=== PATIENT | male | born 1985 | race Caucasian/White ===

== ENCOUNTER 2019-09-28 09:52 | Emergency (ER) | payer MEDICAID ==
[~2019-09-28] VITALS: Ht 195.6 cm; Wt 90.9 kg
[2019-09-28 10:45] LABS: BASOPHILS % (AUTO) 0.6 % (0-1); EOSINOPHILS # (AUTO) 0.1 X10'3 (0-0.9); EOSINOPHILS % (AUTO) 1.9 % (0-6); HEMATOCRIT 44.1 % (42.0-52.0); LYMPHOCYTES # (AUTO) 1.6 X10'3 (1.1-4.8); LYMPHOCYTES % (AUTO) 23.3 % (21-51); MEAN CORPUSCULAR HEMOGLOBIN 32.5 PG (27.0-31.0); MEAN CORPUSCULAR HGB CONC 34.1 g/dL (33.0-36.5); MEAN CORPUSCULAR VOLUME 95.2 FL (78-98); MEAN PLATELET VOLUME 7.8 FL (7.4-10.4); MONOCYTES # (AUTO) 0.4 X10'3 (0-0.9); MONOCYTES % (AUTO) 6.4 % (2-12); NEUTROPHILS # (AUTO) 4.7 X10'3 (1.8-7.7); NEUTROPHILS % (AUTO) 67.8 % (42-75); PLATELET COUNT 243 X10'3 (140-440); RED BLOOD COUNT 4.63 X10'6 (4.70-6.10); RED CELL DISTRIBUTION WIDTH 13.2 % (11.5-14.5)
[2019-09-28 10:58] LABS: ALANINE AMINOTRANSFERASE 25 U/L (12-78); ALBUMIN 4.1 G/DL (3.4-5.0); ALBUMIN/GLOBULIN RATIO 1.2 (1.1-1.5); ALKALINE PHOSPHATASE 73 IU/L (46-116); ANION GAP 7 (8-16); ASPARTATE AMINO TRANSFERASE 30 U/L (10-37); BILIRUBIN,TOTAL 1.3 MG/DL (0.1-1.0); BLOOD UREA NITROGEN 13 MG/DL (7-18); BUN/CREATININE RATIO 15.1 (5.4-32.0); CALCIUM 9.2 MG/DL (8.5-10.1); CHLORIDE 104 MMOL/L (99-107); CREATININE 0.86 MG/DL (0.60-1.10); GLUCOSE 117 MG/DL (70-104); POTASSIUM 3.6 MMOL/L (3.5-5.1); SODIUM 140 MMOL/L (135-145); TOTAL PROTEIN 7.6 G/DL (6.4-8.2); eGFR > 90 ML/MIN
[2019-09-28 11:05] LABS: URINE AMPHETAMINE SCREEN NEGATIVE (Neg); URINE BARBITUATE SCREEN NEGATIVE (Neg); URINE BENZODIAZEPINES SCREEN NEGATIVE (Neg); URINE CANNABINOID SCREEN POSITIVE (Neg); URINE COCAINE SCREEN NEGATIVE (Neg); URINE METHADONE SCREEN NEGATIVE (Neg); URINE OPIATE SCREEN NEGATIVE (Neg); URINE PHENCYCLIDINE SCREEN NEGATIVE (Neg)
[2019-09-28 11:06] LABS: ETHANOL < 0.010 GM/DL (0.0-0.010)
[2019-09-28] MEDS ORDERED: hydrOXYzine 25 MG tablet PO ONE (11:50)
[2019-09-28 12:06] LABS: CLARITY,URINE CLOUDY (Clear); GLUCOSE, URINE NEGATIVE (Neg); KETONES,URINE NEGATIVE (Neg); LEUKOCYTE ESTERASE ,URINE NEGATIVE (Neg); NITRITES, URINE NEGATIVE (Neg); OCCULT BLOOD,URINE NEGATIVE (Neg); PH,URINE 5.5 (4.8-8.0); PROTEIN,URINE NEGATIVE (Neg); UROBILINOGEN,URINE 0.2 E.U/dL (0.2-1.0)
[2019-09-28 12:11] LABS: COLOR,URINE YELLOW (Yellow); UA COLLECTION TYPE CLN CATCH MIDSTREAM
[2019-09-28 12:12] LABS: BACTERIA,URINE NONE SEEN /HPF (Neg); MUCUS STRANDS NONE SEEN /LPF (Neg); RBC,URINE NONE SEEN /HPF (0-2); SQUAMOUS EPITHELIAL CELL,UR NONE SEEN /LPF (FEW); WBC,URINE NONE SEEN /HPF (0-4)
[2019-09-28 12:13] LABS: AMORPHOUS URATES 4+
--- NOTE | 2019-09-28 13:08 | NUR ---
PACKET FAXED TO [facility]
--- NOTE | 2019-09-28 16:05 | NUR ---
resting in bed
[2019-09-28 16:36] VITALS: BP 105/67
[2019-09-28] MEDS ORDERED: NO HOME MEDS (19:22)
== END 2019-09-29 03:51 ==
LOC: ER 09:53
DX: R44.0 Auditory hallucinations (principal); Z59.0 Homelessness
CPT/HCPCS: 36415; 80053; 80305; 80320; 81001; 84443; 85025; 99285; Q0177

== ENCOUNTER 2019-10-09 14:04 | Emergency (ER) | payer MEDICAID ==
[~2019-10-09] VITALS: Ht 198.1 cm; Wt 79.5 kg
[~2019-10-09 14:04] MED LIST: HYDR-3686 PO; NO HOME MEDS; RISP1TAB3 PO; TRAZ-251 PO
[2019-10-09 15:13] LABS: ALANINE AMINOTRANSFERASE 27 U/L (12-78); ALBUMIN 3.5 G/DL (3.4-5.0); ALBUMIN/GLOBULIN RATIO 1.1 (1.1-1.5); ALKALINE PHOSPHATASE 71 IU/L (46-116); ANION GAP 7 (8-16); ASPARTATE AMINO TRANSFERASE 24 U/L (10-37); BASOPHILS # (AUTO) 0.1 X10'3 (0-0.2); BASOPHILS % (AUTO) 0.8 % (0-1); BILIRUBIN,TOTAL 0.5 MG/DL (0.1-1.0); BLOOD UREA NITROGEN 15 MG/DL (7-18); BUN/CREATININE RATIO 17.6 (5.4-32.0); CALCIUM 8.8 MG/DL (8.5-10.1); CHLORIDE 106 MMOL/L (99-107); CREATININE 0.85 MG/DL (0.60-1.10); EOSINOPHILS # (AUTO) 0.1 X10'3 (0-0.9); EOSINOPHILS % (AUTO) 1.4 % (0-6); ETHANOL < 0.010 GM/DL (0.0-0.010); GLUCOSE 94 MG/DL (70-104); HEMATOCRIT 38.7 % (42.0-52.0); HEMOGLOBIN 13.2 g/dl (14.0-17.9); LYMPHOCYTES # (AUTO) 1.5 X10'3 (1.1-4.8); LYMPHOCYTES % (AUTO) 23.7 % (21-51); MEAN CORPUSCULAR HGB CONC 34.1 g/dL (33.0-36.5); MEAN CORPUSCULAR VOLUME 93.8 FL (78-98); MEAN PLATELET VOLUME 7.1 FL (7.4-10.4); MONOCYTES # (AUTO) 0.8 X10'3 (0-0.9); MONOCYTES % (AUTO) 12.8 % (2-12); NEUTROPHILS # (AUTO) 3.9 X10'3 (1.8-7.7); NEUTROPHILS % (AUTO) 61.3 % (42-75); PLATELET COUNT 216 X10'3 (140-440); POTASSIUM 4.2 MMOL/L (3.5-5.1); RED BLOOD COUNT 4.13 X10'6 (4.70-6.10); RED CELL DISTRIBUTION WIDTH 12.7 % (11.5-14.5); SODIUM 142 MMOL/L (135-145); TOTAL CARBON DIOXIDE 28.8 MMOL/L (24-32); TOTAL PROTEIN 6.7 G/DL (6.4-8.2); WHITE BLOOD COUNT 6.4 X10'3 (4.5-11.0); eGFR > 90 ML/MIN
[2019-10-09 15:53] LABS: URINE AMPHETAMINE SCREEN NEGATIVE (Neg); URINE BARBITUATE SCREEN NEGATIVE (Neg); URINE BENZODIAZEPINES SCREEN NEGATIVE (Neg); URINE CANNABINOID SCREEN POSITIVE (Neg); URINE COCAINE SCREEN NEGATIVE (Neg); URINE METHADONE SCREEN NEGATIVE (Neg); URINE OPIATE SCREEN NEGATIVE (Neg); URINE PHENCYCLIDINE SCREEN NEGATIVE (Neg)
--- NOTE | 2019-10-09 16:26 | NUR ---
PACKET FAXED [facility]
--- NOTE | 2019-10-09 17:43 | NUR ---
PT STATES HIS MOM IS ELVIA PRINGLE YANETH SCHMID. HE STATES HE HAS A BROTHER NAMED MINO RODRIGUEZ. HE STATES HE IS FROM [facility]. PT HAS NO ID.
--- NOTE | 2019-10-09 18:15 | NUR ---
PT NEEDS A BUS TICKET TO HIS MOM'S HOUSE. WILL [employer]ALLOON TESTER
--- NOTE | 2019-10-09 18:29 | NUR ---
[facility] [place] [facility] [phone]
--- NOTE | 2019-10-09 19:55 | NUR ---
Patient is in no distress. 1:1 Interview at bedside. Patient tells this com writer he has a history of Schizophrenic and Bipolor. "I have anger issues, I want to hurt people, men, children, anyone, then I turn the anger on myself and want to hang myself." Patient tells this com writer that he was discharged from [facility] to the [place] by taxi. It was crowded there, it kicked in his anxiety so he came here. Patient spoke with his mother by telephone. It was the first time in many years. It is patients plan to go his mothers to live. (See earlier notes.) Patients bed is in direct view from the nursing station.
[2019-10-09] MEDS ORDERED: RISP1TAB3 PO (20:15)
[2019-10-09] MEDS ORDERED: TRAZ-256 PO (20:15)
[2019-10-09] MEDS ORDERED: HYDR-3686 PO (20:15)
[2019-10-09] MEDS: risperiDONE 0.5mg tablet PO SCH (21:10)
[2019-10-09] MEDS: hydrOXYzine 25 MG tablet PO PRN (21:11)
[2019-10-09] MEDS: traZODone 50mg tablet PO SCH (21:11)
--- NOTE | 2019-10-09 22:56 | NUR ---
Patient is sleeping quietly, supine in bed. In view from nursing station.
--- NOTE | 2019-10-10 01:51 | NUR ---
Patient sleeping supine in bed, no signs of discomfort. In view from nursing station.
--- NOTE | 2019-10-10 02:46 | NUR ---
Patient sleeping quietly, no distress. Supine in bed.
--- NOTE | 2019-10-10 03:30 | NUR ---
Patient is sleeping on his right side. He has self repositioned. No distress noted.
--- NOTE | 2019-10-10 04:41 | NUR ---
Patient is sleeping in a supine position.
--- NOTE | 2019-10-10 06:00 | NUR ---
Patient is sleeping quietly on his left side.
--- NOTE | 2019-10-10 07:00 | NUR ---
PT IS RESTING
--- NOTE | 2019-10-10 08:00 | NUR ---
PT IS TALKING TO HIS MOM
--- NOTE | 2019-10-10 09:00 | NUR ---
PT IS RESTING
--- NOTE | 2019-10-10 10:00 | NUR ---
PT IS RESTING
--- NOTE | 2019-10-10 11:00 | NUR ---
PT IS RESTING
--- NOTE | 2019-10-10 12:00 | NUR ---
PT IS RESTING
--- NOTE | 2019-10-10 13:00 | NUR ---
PT IS RESTING
--- NOTE | 2019-10-10 14:00 | NUR ---
PT IS RESTING
--- NOTE | 2019-10-10 15:00 | NUR ---
PT IS RESTING. NO ISSUES AT THIS TIME
--- NOTE | 2019-10-10 16:00 | NUR ---
PT IS RESTING. NO ISSUES AT THIS TIME
--- NOTE | 2019-10-10 17:00 | NUR ---
PT IS RESTING. NO ISSUES AT THIS TIME
--- NOTE | 2019-10-10 18:19 | NUR ---
PT IS RESTING. NO ISSUES AT THIS TIME
--- NOTE | 2019-10-10 19:05 | NUR ---
Pt appears to be resting comfortably in his bed. He has his blankets pulled up over his head. No apparent s/s of distress noted
[2019-10-10] MEDS: risperiDONE 0.5mg tablet PO SCH (20:09)
[2019-10-10] MEDS: traZODone 50mg tablet PO SCH (20:09)
--- NOTE | 2019-10-10 20:10 | NUR ---
Pt continues to be lying in his bed with blankets over his head. Pt awoke easily and took his medication without issue. No apparent s/s of distress noted at this time
--- NOTE | 2019-10-10 21:00 | NUR ---
Pt appears to be resting comfortably. No apparent s/s of distress noted
--- NOTE | 2019-10-10 22:00 | NUR ---
Pt continues to appear to be resting comfortably. No apparent s/s of distress noted
--- NOTE | 2019-10-10 23:00 | NUR ---
Pt appears to be resting comfortably in bed. No apparent s/s of symptoms
--- NOTE | 2019-10-11 | NUR ---
Pt appears to be resting comfortably in bed. No apparent s/s of distress noted
--- NOTE | 2019-10-11 01:05 | NUR ---
Pt appears to be resting comfortably. No apparent s/s of distress noted
--- NOTE | 2019-10-11 02:06 | NUR ---
Pt appears to be resting comfortably in bed. No s/s of distress noted
--- NOTE | 2019-10-11 03:08 | NUR ---
Pt appears to be resting comfortably in bed. No s/s of distress noted
--- NOTE | 2019-10-11 04:06 | NUR ---
Pt appears to be resting comfortably in bed. No s/s of distress noted
--- NOTE | 2019-10-11 05:01 | NUR ---
Pt appears to be resting comfortably in bed. No s/s of distress noted
--- NOTE | 2019-10-11 06:48 | NUR ---
pt sleeping in lft lateral position .rr even and nonlabored.will cont to monitor .
--- NOTE | 2019-10-11 06:52 | NUR ---
pt up to use restroom.no distress noted.will cont to monitor.
--- NOTE | 2019-10-11 09:24 | NUR ---
pt up to use restroom at this time.
--- NOTE | 2019-10-11 10:31 | NUR ---
pt sitting up in the bed drinking water .no distress noted.will cont to monitor.
--- NOTE | 2019-10-11 11:24 | NUR ---
pt talking over the phone .no distress noted.
--- NOTE | 2019-10-11 13:12 | NUR ---
pt up and eating his lunch at this time.
--- NOTE | 2019-10-11 14:09 | NUR ---
pt sitting in bed at this time ,awake no distress noted will cont to monitor.
--- NOTE | 2019-10-11 15:30 | NUR ---
pt resting in bed quietly.no distress noted.will cont to monitor.
--- NOTE | 2019-10-11 16:28 | NUR ---
pt walking in the hallway interactive and cooperative .no concern .will cont to monitor.
--- NOTE | 2019-10-11 19:39 | NUR ---
The patient has been resting on his bed. He denies that he is hearing voices or seeing things that are not there but he is endorsing paranoia. "I'm always paranod. I think everyone is out to get me and that people can hear my thoughts" He made odd statements about being responsible for the rest of the patients on the unit. He states he wants a bus ticket to go to his mother's home in [place]. He currently denies being suicidal. He reports his anxiety is very high.
[2019-10-11] MEDS: hydrOXYzine 25 MG tablet PO PRN (20:17)
[2019-10-11] MEDS: traZODone 50mg tablet PO SCH (20:17)
[2019-10-11] MEDS: risperiDONE 0.5mg tablet PO SCH (20:17)
--- NOTE | 2019-10-11 21:54 | NUR ---
The patient appears to be resting on his bed
--- NOTE | 2019-10-12 01:46 | NUR ---
The patient appears to be sleeping
--- NOTE | 2019-10-12 02:57 | NUR ---
The patient appears to be sleeping
--- NOTE | 2019-10-12 03:58 | NUR ---
Report received and assumed care. Pt resting quietly, respirations normal, no s/s of distress.
[2019-10-12] MEDS: hydrOXYzine 25 MG tablet PO PRN (12:01)
--- NOTE | 2019-10-12 12:02 | NUR ---
breaking primary nurse at this time,pt came to nurses station c/o anxitey ,requesting for prn anxitey med.pt medicated with 50 mg of atarax.pt stated that he sometimes get social anxiteies.denies any other concern ,will cont to monitor.
--- NOTE | 2019-10-12 12:38 | NUR ---
Patient awake and in bed.
--- NOTE | 2019-10-12 13:11 | NUR ---
Patient awake in bed and just finished lunch.
--- NOTE | 2019-10-12 14:12 | NUR ---
Patient awake in bed and reading a book.
--- NOTE | 2019-10-12 14:27 | NUR ---
PTS MOM CALLED AND SPOKE WITH ANITHA FROM [facility] STATING UPON DC THE PT COULD COME LIVE WITH HER. CALL PLACED AND MESSAGE LEFT FOR MASSIMO VAZQUEZ REQUESTING SHE CONTACT [facility] ABOUT POSSIBLE BUS PASS TO GET PT TO MOMS HOUSE. PER ANITHA, PTS MOM LIVES [address].
--- NOTE | 2019-10-12 14:56 | NUR ---
LUKE FROM HERE TO SPEAK WITH ANITHA FROM [facility] RE PT DC PLAN
--- NOTE | 2019-10-12 15:02 | NUR ---
Patient awake in bed and reading a book.
--- NOTE | 2019-10-12 15:47 | NUR ---
Manuel from [facility] will be contacting the patient's mother to figure out what the next step will be.
--- NOTE | 2019-10-12 16:01 | NUR ---
Patient awake and sitting in bed.
--- NOTE | 2019-10-12 17:01 | NUR ---
Patient awake in bed.
--- NOTE | 2019-10-12 17:35 | NUR ---
Patient on the phone with his mother at this time.
--- NOTE | 2019-10-12 18:15 | NUR ---
Patient sitting in bed and coloring.
[2019-10-12] MEDS: risperiDONE 0.5mg tablet PO SCH (21:16)
[2019-10-12] MEDS: traZODone 50mg tablet PO SCH (21:16)
--- NOTE | 2019-10-13 06:30 | NUR ---
Pt sleeping on right side.
--- NOTE | 2019-10-13 08:30 | NUR ---
Pt woke up to eat breakfast. States wants to go to [facility] to see mom.
--- NOTE | 2019-10-13 10:30 | NUR ---
Pt continues to sleep on left side.
[2019-10-13] MEDS: hydrOXYzine 25 MG tablet PO PRN (11:05)
--- NOTE | 2019-10-13 12:30 | NUR ---
Sitting up in bed coloring. Calm and cooperative.
--- NOTE | 2019-10-13 14:30 | NUR ---
Sitting up in bed coloring and watching movie.
--- NOTE | 2019-10-13 16:32 | NUR ---
Pt is in bed sleeping.
--- NOTE | 2019-10-13 19:00 | NUR ---
Pt calm and cooperative laughing with other pts and staff.
--- NOTE | 2019-10-13 19:24 | NUR ---
[place] given per pt request.
[2019-10-13] MEDS: risperiDONE 0.5mg tablet PO SCH (20:13)
[2019-10-13] MEDS: traZODone 50mg tablet PO SCH (20:13)
--- NOTE | 2019-10-13 21:28 | NUR ---
Pt requesting quietly, respirations normal, no s/s of distress.
--- NOTE | 2019-10-13 23:00 | NUR ---
Pt requesting quietly, respirations normal, no s/s of distress.
--- NOTE | 2019-10-14 00:03 | NUR ---
Pt requesting quietly, respirations normal, no s/s of distress.
--- NOTE | 2019-10-14 01:00 | NUR ---
Pt requesting quietly, respirations normal, no s/s of distress.
--- NOTE | 2019-10-14 02:00 | NUR ---
Pt requesting quietly, respirations normal, no s/s of distress.
--- NOTE | 2019-10-14 03:00 | NUR ---
Pt requesting quietly, respirations normal, no s/s of distress.
--- NOTE | 2019-10-14 04:00 | NUR ---
Pt requesting quietly, respirations normal, no s/s of distress.
--- NOTE | 2019-10-14 05:00 | NUR ---
Pt up to restroom.
--- NOTE | 2019-10-14 06:30 | NUR ---
PT AWAKE, RESTING QUIETLY IN HIS BED, READING A BOOK.
--- NOTE | 2019-10-14 08:00 | NUR ---
PT IS GIVEN BREAKFAST TRAY ON BEDSIDE TABLE AND IS EATING.
--- NOTE | 2019-10-14 11:48 | NUR ---
PT AMB TO BATHROOM AND BACK TO BED.
[2019-10-14] MEDS: hydrOXYzine 25 MG tablet PO PRN (12:41)
--- NOTE | 2019-10-14 12:43 | NUR ---
PT ASKING FOR ANXIETY MEDICATION. ADMINISTER ORDERED.
--- NOTE | 2019-10-14 13:15 | NUR ---
PT FINISHED WITH EATING.
--- NOTE | 2019-10-14 14:06 | NUR ---
PT IN BATHROOM AND SHAVING AND CLEANING SELF. REPLACE PTS BEDDING. PT BACK IN BED NOW.
--- NOTE | 2019-10-14 14:56 | NUR ---
PT PLAYING BOARD GAME WITH TWO OTHER PT'S. TECH WATCHING.
--- NOTE | 2019-10-14 16:00 | NUR ---
PT CONTINUES TO PLAY BOARDGAME WITH ANOTHER PT.
--- NOTE | 2019-10-14 17:25 | NUR ---
PT FINISHED WITH BOARD GAMES AND IS BACK IN BED.
--- NOTE | 2019-10-14 19:05 | NUR ---
Patient is resting quietly, he is doing puzzles and reading. Patient denies S/I or H/I at this time. Patient is in direct view from the nursing station.
--- NOTE | 2019-10-14 20:10 | NUR ---
Patient sleeping, no distress.
[2019-10-14] MEDS: traZODone 50mg tablet PO SCH (20:32)
[2019-10-14] MEDS: risperiDONE 0.5mg tablet PO SCH (20:32)
--- NOTE | 2019-10-14 21:04 | NUR ---
Patient is sleeping quietly on his right side.
--- NOTE | 2019-10-14 23:42 | NUR ---
Patient sleeping quietly on his left side in bed.
--- NOTE | 2019-10-15 01:20 | NUR ---
Patient sleeping in supine position. No distress noted.
--- NOTE | 2019-10-15 02:15 | NUR ---
Patient is sleeping on his right side, in view from nursing station.
--- NOTE | 2019-10-15 04:29 | NUR ---
Patient sleeping on his right side in bed. No distress.
--- NOTE | 2019-10-15 04:57 | NUR ---
Patient awake, ambulatory to bathroom to void, normal gait. Back to bed and resting.
--- NOTE | 2019-10-15 06:30 | NUR ---
Assumed care. Patient sleeping. No complaints noted.
--- NOTE | 2019-10-15 07:30 | NUR ---
Patient awake and coloring, calm/cooperative.
--- NOTE | 2019-10-15 08:30 | NUR ---
Patient eating breakfast. No s/sx of distress, no complaints noted.
--- NOTE | 2019-10-15 09:23 | NUR ---
Sitting up in bed drawing, no complaints noted, calm/cooperative.
--- NOTE | 2019-10-15 10:17 | NUR ---
BREAKING PRIMARY RN, PT IS LAYING ON HIS RIGHT SIDE, EYES CLOSED, REGULAR BREATHING PRESENT, NO NEEDS AT THIS TIME
--- NOTE | 2019-10-15 11:45 | NUR ---
CURRENTLY PLAYING A GAME WITH PATIENT IN BED 22, TOLERATING WELL.
--- NOTE | 2019-10-15 12:56 | NUR ---
pt up in bed ,eating is lunch,will cont to monitor.primary nurse came back from break.
--- NOTE | 2019-10-15 13:05 | NUR ---
Patient resting back in bed with eyes closed after eating lunch, no complaints.
--- NOTE | 2019-10-15 14:54 | NUR ---
Orly with [facility] here to see patient.
--- NOTE | 2019-10-15 14:57 | NUR ---
Orly is releasing patient's 2250. Will page social media marketing analyst for bus pass to [facility] to his mothers house.
[2019-10-15] MEDS: hydrOXYzine 25 MG tablet PO PRN (15:08)
--- NOTE | 2019-10-15 15:30 | NUR ---
Patient in process of discharging, working with [facility] to figure out a plan for him to safely get home.
--- NOTE | 2019-10-15 17:17 | NUR ---
Received notice that patient's mother has purchased his bus ticket that leaves heading to [place] at 0440 tomorrow am. Medications will be picked up from [facility] by the bundle collector to deliver them to patient ryanne before his departure tomorrow am. Faxed eligibility response form to [facility] for the emergency partnership plan for patient. Patient eager to discharge & head home back to his mother in [place].
--- NOTE | 2019-10-15 18:13 | NUR ---
Taxi cab (yellow cab) will be arriving at 0330 to product picker patient to transport to bus station.
--- NOTE | 2019-10-15 18:35 | NUR ---
Assumed care of pt from GUZMAN Pedraza. No changes to report. Agree with previous assessment. Pt sitting upright on bed, eating dinner at this time. In no apparent distress.
--- NOTE | 2019-10-15 20:25 | NUR ---
pt up watching movie
[2019-10-15] MEDS: traZODone 50mg tablet PO SCH (20:50)
[2019-10-15] MEDS: risperiDONE 0.5mg tablet PO SCH (20:50)
--- NOTE | 2019-10-15 22:28 | NUR ---
Pt resting comfortably at this time. In no distress.
--- NOTE | 2019-10-15 23:10 | NUR ---
Pt resting comfortably. No changes.
--- NOTE | 2019-10-16 00:43 | NUR ---
Pt resting comfortably. No changes.
--- NOTE | 2019-10-16 02:23 | NUR ---
Pt resting comfortably. No changes.
[2019-10-16] MEDS: hydrOXYzine 25 MG tablet PO PRN (03:09)
--- NOTE | 2019-10-16 03:10 | NUR ---
Pt up and out of bed. Requests anxiety medication. Pt medicated.
--- NOTE | 2019-10-16 03:25 | NUR ---
All belongings back to pt. Pt verbalizes understanding of discharge instructions. 35 day supply of prescribed medications also sent with pt. Bus ticket with pt. Yellow cab to transport pt to bus station. ambulatory out of ED. No further pt contact.
[2019-10-16 03:27] VITALS: BP 141/62
== END 2019-10-16 03:29 | disposition home or self-care (01) ==
LOC: ER 14:05
DX: R45.851 Suicidal ideations (principal); R44.1 Visual hallucinations; R44.0 Auditory hallucinations; Z59.0 Homelessness; Z79.899 Other long term (current) drug therapy
CPT/HCPCS: 36415; 80053; 80305; 80320; 85025; 99285; Q0177